=== PATIENT | male | born 1970 | race Caucasian/White ===

== ENCOUNTER 2020-01-17 11:14 | Emergency (ER) | payer OTHER, SELFPAY ==
--- NOTE | ~2020-01-17 | XR_ITS ---
CORRECTED REPORT order changed to XR chest 1v portable 01/17/2020 [facility] EXAMINATION: XR chest 1V portable DATE: 01/17/2020 12:09 INDICATION: Cough TECHNIQUE: Portable AP chest at 1208 hours COMPARISON: None available FINDINGS: The lungs are free of acute opacities. There is no pleural effusion or pneumothorax. The cardiomediastinal silhouette is normal. The visualized bones and soft tissues are unremarkable. IMPRESSION: 1. No acute cardiopulmonary abnormality. Reviewed, dictated and finalized at location A. MTDD
[2020-01-17 11:35] VITALS: BP 111/88; PULSE 84; RESP 20; TEMP 37; O2SAT 100
[2020-01-17 12:24] LABS: Hematocrit 43.2 % (40.0-54.0); Hemoglobin 15.3 g/dL (14.0-18.0); Mean Corpuscular HGB Conc 35.4 g/dL (32.0-36.0); Mean Corpuscular Hemoglobin 30.8 pg (27.0-31.0); Mean Corpuscular Volume 86.9 fL (78.0-102.0); Mean Platelet Volume 10.5 fl (8.7-11.0); Platelet Count Result 248 K/mm3 (150-420); Red Blood Count 4.97 M/mm3 (4.70-6.10); Red Cell Distribution Width 12.2 % (11.6-14.4); White Blood Count 6.5 K/mm3 (4.8-10.8)
[2020-01-17 12:42] LABS: Alanine Aminotransferase 12 U/L (16-63); Albumin Level 3.8 g/dL (3.4-5.0); Alkaline Phosphatase 73 U/L (46-116); Anion Gap 12.6 mmol/L (7-16); Aspartate Amino Transferase 20 U/L (15-37); Blood Urea Nitrogen 26 mg/dL (7-18); Calcium 9.1 mg/dL (8.5-10.1); Carbon Dioxide 28 mmol/L (21-32); Chloride 107 mmol/L (98-108); Estimated CRCL calculation 73 ml/min; Estimated Glomerular Filt Rate > 60; Glucose 87 mg/dL (70-99); Osmolality Calculated 301 mOsm/kg (285-295); Potassium 3.6 mmol/L (3.5-5.1); Sodium 144 mmol/L (136-145); Total Protein 7.2 g/dL (6.4-8.2)
[2020-01-17 12:43] LABS: Influenza Control Valid (Valid)
--- NOTE | 2020-01-17 12:56 | ED.URI ---
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 Patient here in the emergency department is afebrile vital signs are stable is satting 100% on room air. MD elicited complaint: fever and cough Onset (ago): day(s) Exacerbating factors: deep breaths Context: recent travel Associated symptoms: fever, nasal congestion and shortness of breath Treatments prior to arrival: none Related Data Home Medications Medication Instructions Recorded Confirmed No Home Medications 01/17/20 01/17/20 Allergies Allergy/AdvReac Type Severity Reaction Status Date / Time codeine Allergy Unknown Verified 01/17/20 12:19 Review of Systems Review of Systems: All systems reviewed & are unremarkable except as noted in HPI and below PMFSH Past Medical History Medical History Patient denies medical problems Exam Const: General: no acute distress and alert Orientation/consciousness: patient oriented x3 HENMT: Head: normal to inspection Eyes: Conjunctivae: conjunctivae normal Pupils: Equal, round and reactive pupils present Neck: Neck: normal visual inspection and no lymphadenopathy Chest: Chest palpation & inspection: normal inspection of the chest and abnormal inspection of the chest Resp: Effort & Inspection: normal respiratory effort Auscultation: clear to auscultation bilaterally Cardio: Rate: regular rate Rhythm: regular rhythm GI: GI Palp: Yes Soft to palpation : Testes: Testes normal Skin: General skin exam: normal color Rashes: no rashes Neuro: General: patient oriented x3, moves all extremities, no meningeal signs and no focal motor deficits Extrem: General: normal to inspection Psych: Appearance: grossly normal Mental Status: mental status grossly normal Thought content: Yes Normal thought content present Course Course Emergency Course: Patient currently afebrile, resting comfortably breathing easier after Spiriva inhalation, his O2 sats are 100% on room air. Vital Signs Vital signs: Vital Signs Temperature 37.0 C 01/17/20 11:35 Pulse Rate 84 01/17/20 11:35 Respiratory Rate 01/17/20 11:35 Blood Pressure 111/88 01/17/20 11:35 Pulse Oximetry 100 01/17/20 11:35 Temperature 37.0 C 01/17/20 11:35 Pulse Rate 84 01/17/20 11:35 Respiratory Rate 01/17/20 11:35 Blood Pressure 111/88 01/17/20 11:35 Pulse Oximetry 100 01/17/20 11:35 MDM - URI/Sore Throat Lab Data Result diagrams: 01/17/20 12:18 01/17/20 12:17 Labs: Lab Results 01/17/20 01/17/20 01/17/20 Range/Units 11:49 12:17 12:18 WBC 6.5 (4.8-10.8) K/mm3 RBC 4.97 (4.70-6.10) M/mm3 Hgb 15.3 (14.0-18.0) g/dL Hct 43.2 (40.0-54.0) % MCV 86.9 (78.0-102.0) fL MCH 30.8 (27.0-31.0) pg MCHC 35.4 (32.0-36.0) g/dL RDW 12.2 (11.6-14.4) % Plt Count 248 (150-420) K/mm3 MPV 10.5 (8.7-11.0) fl Sodium 144 (136-145) mmol/L Potassium 3.6 (3.5-5.1) mmol/L Chloride 107 (98-108) mmol/L Carbon Dioxide 28 (21-32) mmol/L Anion Gap 12.6 (7-16) mmol/L BUN 26 H (7-18) mg/dL Creatinine 1.14 (0.70-1.30) mg/dL Estim Creat Clear Calc 73 ml/min Estimated GFR > 60 (59 - ) Glucose 87 (70-99) mg/dL Calculated Osmolality 301 H (285-295) mOsm/kg Calcium 9.1 (8.5-10.1) mg/dL Total Bilirubin 4.0 H (0.00-1.00) mg/dL
[2020-01-17 13:15] VITALS: BP 113/81; PULSE 74; RESP 18; O2SAT 100
[2020-01-18 13:30] LABS: SARS-CoV-2 RNA PCR Negative
== END 2020-01-17 13:17 | disposition home or self-care (01) ==
PROVIDERS: Emergency Provider Emergency Medicine
DX: B34.9 Viral infection, unspecified (principal); Z20.828 Contact with and (suspected) exposure to other viral communicable diseases
CPT/HCPCS: 36415; 71045; 80053; 85027; 87635; 87804; 99282; 99283; C9803; U0003